=== PATIENT | female | born 1985 | race Caucasian/White ===

== ENCOUNTER 2018-04-04 20:34 | Emergency (ER) | payer OTHER ==
[2018-04-04 20:56] VITALS: RESP 18; O2SAT 100; BMI 25.6
[2018-04-04] MEDS ORDERED: Sodium Chloride 0.9% 1,000 ML IV STA (21:06)
--- NOTE | 2018-04-04 21:20 | ED PDOC ---
Arrival/HPI <RissaAvtar - Last Filed: 04/04/18 21:32> - General Historian: Patient <Catie Nance Mariel - Last Filed: 04/05/18 00:36> - General Chief Complaint: GI Problem Time Seen by Provider: 04/04/18 20:45 - History of Present Illness Narrative History of Present Illness (Text): 04/04/18 21:16 33yo female with PMHx of endometriosis who present with 4days history of nausea and vomiting. States symptom started with her period. she report history of vomiting with her period, but it usually resolve in a day, but this time it persisted. States she have very mild pain, which she gets with her period. She denies diarrhea, constipation, melena, hematemesis, fever, chills, back pain, urinary symptoms, any other complaint. (Catie Nance A) Past Medical History - Provider Review Nursing Documentation Reviewed: Yes - Psychiatric Hx Substance Use: No - Surgical History Other/Comment: Laproscopic <Catie Nance Mariel - Last Filed: 04/05/18 00:36> Family/Social History - Physician Review Nursing Documentation Reviewed: Yes Family/Social History: Unknown Family HX Smoking Status: Never Smoked Hx Alcohol Use: No Hx Substance Use: No <Catie Nance Mariel - Last Filed: 04/05/18 00:36> Allergies/Home Meds <RissaAvtar - Last Filed: 04/04/18 21:32> <Catie Nance Mariel - Last Filed: 04/05/18 00:36> Allergies/Adverse Reactions: Allergies No Known Allergies Allergy (Verified 04/04/18 21:06) Review of Systems - Physician Review All systems were reviewed & negative as marked: Yes - Review of Systems Constitutional: Normal Eyes: Normal ENT: Normal Respiratory: Normal Cardiovascular: Normal Gastrointestinal: Abdominal Pain, Nausea, Vomiting. absent: Constipation, Diarrhea, Hematochezia, Hematemesis Genitourinary Female: Normal Musculoskeletal: Normal Skin: Normal Neurological: Normal Endocrine: Normal Hemo/Lymphatic: Normal Psychiatric: Normal <Catie Nance Mariel - Last Filed: 04/05/18 00:36> Physical Exam Vital Signs Reviewed: Yes Temperature: Afebrile Blood Pressure: Normal Pulse: Regular Respiratory Rate: Normal Appearance: Positive for: Well-Appearing, Non-Toxic, Comfortable Pain Distress: None Mental Status: Positive for: Alert and Oriented X 3 - Systems Exam Head: Present: Atraumatic, Normocephalic Pupils: Present: PERRL Extroacular Muscles: Present: EOMI Conjunctiva: Present: Normal Mouth: Present: Moist Mucous Membranes Neck: Present: Normal Range of Motion Respiratory/Chest: Present: Clear to Auscultation, Good Air Exchange. No: Respiratory Distress, Accessory Muscle Use Cardiovascular: Present: Regular Rate and Rhythm, Normal S1, S2. No: Murmurs Abdomen: Present: Other (Soft). No: Tenderness, Distention, Peritoneal Signs, Rebound, Guarding, McBurney's Point Tender, Rovsing's Sign Present Back: Present: Normal Inspection Upper Extremity: Present: Normal Inspection. No: Cyanosis, Edema Lower Extremity: Present: Normal Inspection. No: Edema Neurological: Present: GCS=15, CN II-XII Intact, Speech Normal Skin: Present: Warm, Dry, Normal Color. No: Rashes Psychiatric: Present: Alert, Oriented x 3, Normal Insight, Normal Concentration <Catie Nance - Last Filed: 04/05/18 00:36> Vital Signs Temp Pulse Resp BP Pulse Ox 04/04/18 23:07 98 F 78 18 110/60 100 04/04/18 22:41 98 F 77 18 103/65 100 04/04/18 20:52 98.4 F 88 18 121/52 L 100 Medical Decision Making <Avtar Kwok - Last Filed: 04/04/18 21:32> <Catie Nance - Last Filed: 04/05/18 00:36> ED Course and Treatment: 04/04/18 21:19 33yo female present with complaint of nausea and vomiting x 4days. Labs ordered Zofran, 1L NS ordered Abdominal xray ordered to r/o obstruction will re asses pt. 04/05/18 00:35 PT tolerated PO challenge in ED. Lab was unremarkable. H/H of 9.3 was noted and pt admitted history of anemia. She was DC home with zofran. Referred to her PMD/ [facility]IN[facility] (Catie Nance) - Lab Interpretations Lab Results: 04/04/18 21:17 04/04/18 21:17 Lab Results 04/04/18 21:17: Sodium 148, Potassium 3.5 L, Chloride 104, Carbon Dioxide 26, Anion Gap 21 H, BUN 13, Creatinine 0.8, Est GFR ( Amer) > 60, Est GFR ( Non-Af Amer) > 60, Random Glucose 109, Calcium 9.8, Magnesium 1.8, Total Bilirubin 0.3, AST 35, ALT 31, Alkaline Phosphatase 68, Total Protein 8.5 H, Albumin 4.8, Globulin 3.8, Albumin/Globulin Ratio 1.3, Lipase 155 04/04/18 21:17: Urine Color Light yellow, Urine Appearance Clear, Urine pH 8.0, Ur Specific [place] 1.015, Urine Protein Negative, Urine Glucose (UA) Negative, Urine Ketones Negative, Urine Blood Moderate H, Urine Nitrate Negative, Urine Bilirubin Negative, Urine Urobilinogen 0.2, Ur Leukocyte Esterase Negative, Urine RBC 2 - 5, Urine WBC 0 - 2, Ur Epithelial Cells 4 - 5, Urine Bacteria Trace 04/04/18 21:17: PT 11.9, INR 1.04, APTT 28.0 04/04/18 21:17: WBC 7.9, RBC 4.89, Hgb 9.3 L, Hct 30.7 L, MCV 62.8 L, MCH 19.0 L , MCHC 30.3 L, RDW 20.1 H, Plt Count 481 H, MPV 9.1, Gran % 61.8, Lymph % (Auto ) 28.3, [place] % (Auto) 8.5 H, Eos % (Auto) 1.3 L, Baso % (Auto) 0.1, Gran # 4.90 , Lymph # (Auto) 2.2, [place] # (Auto) 0.7 H, Eos # (Auto) 0.1, Baso # (Auto) 0.01 - RAD Interpretation Radiology Orders: 04/04/18 21:06 ABD 2 VIEWS (FLAT/UP OR DECUB) [RAD] Stat - Medication Orders Current Medication Orders: Discontinued Medications Sodium Chloride (Sodium Chloride 0.9%) 1,000 mls @ 1,000 mls/hr IV .Q1H STA Stop: 04/04/18 22:05 Last Admin: 04/04/18 21:20 Dose: 1,000 mls/hr eMAR Start Stop Document 04/04/18 21:20 LA (Rec: 04/04/18 21:20 LA [id number]) Intravenous Solution Start Date 04/04/18 Start Time 21:20 End Date 04/04/18 End time 22:20 Total Infusion Time 60 Ketorolac Tromethamine (Toradol) 30 mg IVP STAT STA Stop: 04/04/18 21:07 Last Admin: 04/04/18 21:19 Dose: 30 mg MAR Pain Assessment Document 04/04/18 21:19 LA (Rec: 04/04/18 21:20 LA [id number]) Pain Reassessment Is this a pain reassessment? No Sleep Is patient sleeping during reassessment? No Presence of Pain Presence of Pain Yes Pain Scale Used Pain Scale Used Numeric Location Pain Location Body Site Abdomen Description Description Cramping Intensity of Pain at present 4 Pain Behavior Guarding IVP Administration Document 04/04/18 21:19 LA (Rec: 04/04/18 21:20 LA [id number]) Charges for Administration # of IVP Administrations 1 Ondansetron HCl (Zofran Inj) 4 mg IVP STAT STA Stop: 04/04/18 21:07 Last Admin: 04/04/18 21:20 Dose: 4 mg IVP Administration Document 04/04/18 21:20 LA (Rec: 04/04/18 21:20 LA [id number]) Charges for Administration # of IVP Administrations 1 - PA / [employer] [employer] / Resident Statement BASHIR has reviewed & agrees with the documentation as recorded. BASHIR has examined the patient and agrees with the treatment plan. <Avtar Kwok - Last Filed: 04/04/18 21:32> Disposition/Present on Arrival <Avtar Kwok - Last Filed: 04/04/18 21:32> - Present on Arrival Any Indicators Present on Arrival: No History of DVT/PE: No History of Uncontrolled Diabetes: No Urinary Catheter: No History of Decub. Ulcer: No History Surgical Site Infection Following: None - Disposition Have Diagnosis and Disposition been Completed?: Yes Disposition Time: 22:50 Patient Plan: Discharge <Catie Nance - Last Filed: 04/05/18 00:36> - Disposition Diagnosis: Vomiting, Abdominal pain Disposition: HOME/ ROUTINE Condition: STABLE Discharge Instructions (ExitCare): Acute Abdomen (Belly Pain), Adult (DC), Nausea and Vomiting, Adult (DC) Additional Instructions: Follow up with your Doctor/[facility] G[facility]INER Return to ED for any new or worsening symptoms Prescriptions: Ondansetron ODT [Zofran ODT] 4 mg PO Q6 #9 odt Referrals: PCP,NO [Primary Care Provider] - Follow up with primary [facility] [place] - Follow up with primary Forms: [employer] ([place])
[2018-04-04 21:25] LABS: BASO # 0.01 K/mm3 (0.0-2.0); BASO % 0.1 % (0.0-3.0); EOS # 0.1 (0.0-0.7); EOS % 1.3 % (1.5-5.0); GRAN # 4.9 (1.4-6.5); GRAN % 61.8 % (50.0-68.0); HEMOGLOBIN 9.3 g/dL (12.0-16.0); LYMPH # 2.2 (1.2-3.4); LYMPH % 28.3 % (22.0-35.0); MEAN CELL VOLUME 62.8 fl (80.0-105.0); MEAN CORPUSCULAR HGB CONC 30.3 g/dl (31.0-37.0); MEAN PLATELET VOLUME 9.1 fl (7.0-11.0); MONO # 0.7 (0.1-0.6); MONO % 8.5 % (1.0-6.0); RBC 4.89 10^6/uL (3.5-6.1); RED CELL DISTRIBUTION WIDTH 20.1 % (11.5-14.5); URINE BILIRUBIN NEGATIVE (NEGATIVE); URINE BLOOD MODERATE (NEGATIVE); URINE GLUCOSE (UA) NEGATIVE (NEGATIVE); URINE LEUKOCYTE ESTERASE NEGATIVE Leu/uL (NEGATIVE); URINE PROTEIN NEGATIVE mg/dL (<30 mg/dL); URINE UROBILINOGEN 0.2 E.U./dL (<1 E.U./dL); WHITE BLOOD COUNT 7.9 10^3/ul (4.5-11.0)
[2018-04-04 21:27] LABS: URINE APPEARANCE CLEAR (CLEAR); URINE COLOR LIGHT YELLOW (YELLOW)
[2018-04-04 21:32] LABS: INR 1.04 (0.93-1.08); PROTHROMBIN TIME 11.9 SECONDS (9.4-12.5)
[2018-04-04 21:33] LABS: URINE WBC 0 - 2 /hpf (0-6)
[2018-04-04 21:34] LABS: ALB/GLOB RATIO 1.3 (1.1-1.8); URINE BACTERIA TRACE (NEG)
[2018-04-04 21:40] LABS: ALBUMIN 4.8 g/dL (3.0-4.8); ALT/SGPT 31 U/L (7-56); AST/SGOT 35 U/L (14-36); BLOOD UREA NITROGEN 13 mg/dL (7-21); CALCIUM 9.8 mg/dL (8.4-10.5); GFR AFRICAN-AMERICAN > 60; GFR NON-AFRICAN AMERICAN > 60; LIPASE 155 U/L (23-300)
[2018-04-04 22:42] VITALS: TEMP 98
[2018-04-04 23:07] VITALS: BP 110/60; PULSE 78
--- NOTE | 2018-04-05 08:46 | RAD ---
HISTORY: Vomiting COMPARISON: No prior. FINDINGS: BOWEL: Normal. No obstruction. No free air. BONES: Normal. OTHER FINDINGS: None. IMPRESSION: No active disease.
== END 2018-04-04 23:07 | disposition home or self-care (01) ==
LOC: ED 20:34
DX: R11.2 Nausea with vomiting, unspecified (principal); R10.9 Unspecified abdominal pain
CPT/HCPCS: 74019; 80053; 81001; 83690; 83735; 85025; 85610; 85730; 96361; 96374; 96375; 99284; J1885; J2405; J7040